=== PATIENT | female | born 1985 | race Caucasian/White ===

== ENCOUNTER 2021-09-01 21:11 | Emergency (ER) | payer MEDICAID ==
[~2021-09-01] VITALS: Ht 160 cm; Wt 74.5 kg
[2021-09-01] MEDS ORDERED: BENZ-38 PO (22:46)
[2021-09-01] MEDS ORDERED: ALBU6.7H9 INH (22:46)
[2021-09-01] MEDS ORDERED: PRED10TA23 PO (22:46)
[2021-09-01] MEDS ORDERED: LEVO500T90 PO (22:46)
[2021-09-01] MEDS ORDERED: SULF1TAB49 PO (23:24)
[2021-09-01 23:37] VITALS: BP 131/84
== END 2021-09-01 23:40 | disposition home or self-care (01) ==
LOC: ER 21:12
DX: S30.864A Insect bite (nonvenomous) of vagina and vulva, initial encounter (principal); Z20.822 Contact with and (suspected) exposure to COVID-19; N76.4 Abscess of vulva; Z88.1 Allergy status to other antibiotic agents; Z79.899 Other long term (current) drug therapy; W57.XXXA Bitten or stung by nonvenomous insect and other nonvenomous arthropods, initial encounter; Y93.89 Activity, other specified; Y92.89 Other specified places as the place of occurrence of the external cause; Y99.8 Other external cause status
CPT/HCPCS: 87635; 99283; C9803